=== PATIENT | female | born 1975 | race Caucasian/White ===

== ENCOUNTER 2017-04-20 19:52 | Emergency (ER) | payer BC | END 2017-04-21 00:14 | disposition home or self-care (01) | LOC: D.ER 19:52 | DX: M25.561 Pain in right knee (principal); S83.91XA Sprain of unspecified site of right knee, initial encounter; X58.XXXA Exposure to other specified factors, initial encounter ==

== ENCOUNTER 2017-05-18 19:55 | Emergency (ER) | payer BC ==
[2017-05-18 20:38] LABS: BASOPHILS 0.2 % (0-2); EOSINOPHILS 0.7 % (0-7); HEMATOCRIT 38.9 % (36.0-48.0); IMMATURE GRANULOCYTES 0.6 % (0-5); LYMPHOCYTES 19.6 % (15-50); MCH 30.5 pg (26.0-34.0); MCHC 33.4 g/dL (31.0-37.0); MCV 91.3 fL (80.0-100.0); MONOCYTES 8.8 % (2-11); NEUTROPHILS 70.1 % (40-80); PLATELET COUNT 269 10x3/uL (130-400); RBC 4.26 10x6/uL (4.00-5.40); RDW 13.8 % (11.5-14.5); WBC 13.7 10x3/uL (4.8-10.8)
[2017-05-18 20:52] LABS: ALBUMIN 3.5 g/dL (3.4-5.0); ANION GAP 11.5 mmol/L (8-16); BILIRUBIN - TOTAL 0.28 mg/dL (0.2-1.3); CALCIUM 8.8 mg/dL (8.5-10.1); CARBON DIOXIDE 28.6 mmol/L (21.0-32.0); CREATININE - SERUM 0.9 mg/dL (0.6-1.3); POTASSIUM - SERUM 4.1 mmol/L (3.5-5.1); PROTEIN - SERUM 7.1 g/dL (6.4-8.2)
[2017-05-18 21:42] LABS: APPEARANCE CLEAR (CLEAR); BILIRUBIN NEGATIVE (NEGATIVE); COLOR YELLOW (YELLOW); GLUCOSE NEGATIVE (NEGATIVE); KETONE NEGATIVE (NEGATIVE); LEUKOCYTE ESTERASE NEGATIVE (NEGATIVE); NITRITE NEGATIVE (NEGATIVE); PROTEIN NEGATIVE (NEGATIVE); UROBILINOGEN NORMAL (NORMAL)
== END 2017-05-18 22:04 | disposition home or self-care (01) ==
LOC: D.ER 19:55
PROVIDERS: Family Medicine
DX: G43.909 Migraine, unspecified, not intractable, without status migrainosus (principal); F17.200 Nicotine dependence, unspecified, uncomplicated

== ENCOUNTER 2017-06-05 22:02 | Emergency (ER) | payer MEDICAID | END 2017-06-06 00:12 | disposition home or self-care (01) | LOC: D.ER 22:02 | DX: G43.909 Migraine, unspecified, not intractable, without status migrainosus (principal) ==

== ENCOUNTER 2017-06-08 18:30 | Emergency (ER) | payer MEDICAID | END 2017-06-08 21:50 | disposition home or self-care (01) | LOC: D.ER 18:30 | DX: S30.0XXA Contusion of lower back and pelvis, initial encounter (principal); X58.XXXA Exposure to other specified factors, initial encounter; Y93.89 Activity, other specified; Y92.89 Other specified places as the place of occurrence of the external cause; S80.11XA Contusion of right lower leg, initial encounter; F17.200 Nicotine dependence, unspecified, uncomplicated ==

== ENCOUNTER 2017-07-06 23:44 | Emergency (ER) | payer MEDICAID | END 2017-07-07 00:54 | disposition home or self-care (01) | LOC: D.ER 23:44 | DX: M54.5 Low back pain (principal); W19.XXXA Unspecified fall, initial encounter; Y93.89 Activity, other specified; Y92.89 Other specified places as the place of occurrence of the external cause; F17.200 Nicotine dependence, unspecified, uncomplicated ==

== ENCOUNTER 2017-09-02 12:22 | Emergency (ER) | payer MEDICAID | END 2017-09-02 14:30 | disposition home or self-care (01) | LOC: D.ER 12:22 | DX: S70.01XA Contusion of right hip, initial encounter (principal); S30.0XXA Contusion of lower back and pelvis, initial encounter; W01.0XXA Fall on same level from slipping, tripping and stumbling without subsequent striking against object, initial encounter; Y93.89 Activity, other specified; Y92.029 Unspecified place in mobile home as the place of occurrence of the external cause; M54.16 Radiculopathy, lumbar region; F17.200 Nicotine dependence, unspecified, uncomplicated ==

== ENCOUNTER 2017-09-04 17:14 | Emergency (ER) | payer MEDICAID | END 2017-09-04 19:08 | disposition home or self-care (01) | LOC: D.ER 17:14 | DX: R51 Headache (principal) ==

== ENCOUNTER 2017-10-11 16:01 | Emergency (ER) | payer MEDICAID | END 2017-10-11 17:44 | disposition home or self-care (01) | LOC: D.ER 16:01 | DX: G43.909 Migraine, unspecified, not intractable, without status migrainosus (principal); L03.211 Cellulitis of face ==